=== PATIENT | female | born 2000 | race Two or more races ===

== ENCOUNTER 2023-10-16 10:57 | Emergency (ER) | payer MEDICAID, OTHER ==
[~2023-10-16] VITALS: Ht 167.6 cm; Wt 84.1 kg
[2023-10-16 13:37] VITALS: BP 143/90; PULSE 84; RESP 16; TEMP 99.4; O2SAT 100
[2023-10-16] MEDS ORDERED: IBUP1TAB5 PO (13:49)
== END 2023-10-16 14:11 | disposition home or self-care (01) ==
LOC: ER 10:57
DX: M23.8X2 Other internal derangements of left knee (principal); Z79.899 Other long term (current) drug therapy